=== PATIENT | male | born 1990 | race Caucasian/White ===

== ENCOUNTER 2025-01-18 23:06 | Emergency (ER) | payer SELFPAY ==
[~2025-01-18] VITALS: Ht 180.3 cm; Wt 73.0 kg
[2025-01-18 23:10] VITALS: TEMP 37.1; O2SAT 95
[2025-01-18] MEDS ORDERED: LORAZEPAM 2MG/ML UD SYRINGE IV ONE (23:30)
[2025-01-18] MEDS: SODIUM CHLORIDE 0.9% 1,000 ML IV ONE (23:56)
[2025-01-18] MEDS: LORAZEPAM 2MG/ML UD SYRINGE IV NR (23:57)
[2025-01-19] VITALS: BP 145/101; PULSE 98; RESP 16; O2SAT 100
== END 2025-01-19 00:10 | disposition home or self-care (01) ==
LOC: ER 23:06
DX: F41.9 Anxiety disorder, unspecified (principal); F41.0 Panic disorder [episodic paroxysmal anxiety]
CPT/HCPCS: 99283; J7030; J2060